=== PATIENT | female | born 1940 | race Caucasian/White ===

== ENCOUNTER 2016-10-31 09:51 | Day surgery (SDC) | payer MEDICARE ==
[~2016-10-31 09:51] MED LIST: ACTONEL150 MG PO; ASAB PO; BUSPAR10 PO; CITRACAL PO; FISH-EPA1000 MG PO; FLUCON2 PO; HUMULIN R1 ML SC; IMU PO; MAGOX4 PO; MULTIPLE VIT PO; NEXIUM40 PO; NORV25 PO; NORV5 PO; P5 PO; PREM625 PO; PRILOSEC40 MG PO; PROGRAF0.5 PO; PROGRAF1 PO; SEPTRA1 TAB PO; ZITH250 PO
== END 2016-10-31 23:59 | disposition home or self-care (01) ==
LOC: DMU 09:51
PROVIDERS: Internal Medicine Gastroenterology
PROC: 4A0B78Z Measurement of Gastrointestinal Motility, Via Natural or Artificial Opening (ICD-10-PCS; principal; 2016-10-31 10:30)
DX: K22.0 Achalasia of cardia (principal); I10 Essential (primary) hypertension; I48.91 Unspecified atrial fibrillation
CPT/HCPCS: 91010; A9270 ×2; C1894 ×2